=== PATIENT | male | born 1955 | race Two or more races ===

== ENCOUNTER 2020-11-28 22:38 | Inpatient (IN) | payer OTHER, MEDICARE ==
[~2020-11-28] VITALS: Ht 180.3 cm; Wt 94.1 kg
[2020-11-28] MEDS ORDERED: AMOXICILLIN/CLAV 875-125MG TABLET PO ONE (23:00)
[2020-11-28] MEDS ORDERED: ASPIRIN 325 MG TABLET ONE (23:19)
[2020-11-28 23:27] LABS: BASOPHILS % (AUTO) 0 % (0-1); EOSINOPHILS % (AUTO) 7 % (1-7); LYMPHOCYTES % (AUTO) 16 % (22-44); MEAN CORPUSCULAR HEMOGLOBIN 32.2 pg (27.5-34.5); MEAN CORPUSCULAR HGB CONC 33.3 g/dL (33.2-36.2); MEAN PLATELET VOLUME 8.6 fL (7.4-10.4); MONOCYTES % (AUTO) 13 % (2-9); NEUTROPHILS % (AUTO) 65 % (42-75); PLATELET COUNT 192 x10^3/uL (130-400); RED BLOOD COUNT 4.07 x10^6/uL (4.38-5.82); RED CELL DISTRIBUTION WIDTH 13.3 % (9.4-14.8)
[2020-11-28] MEDS ORDERED: ASPIRIN 325 MG TABLET PO ONE (23:30)
[2020-11-28 23:37] LABS: ALANINE AMINOTRANSFERASE 46 U/L (12-78); ALBUMIN 3.7 g/dL (3.4-5.0); CALCIUM 8.4 mg/dL (8.5-10.1); CHLORIDE 112 mmol/L (98-107); CREATININE 1.03 mg/dL (0.7-1.3)
[2020-11-28 23:41] LABS: ALKALINE PHOSPHATASE 78 U/L (45-117); BILIRUBIN,TOTAL 0.3 mg/dL (0.2-1.0); TOTAL PROTEIN 7.1 g/dL (6.4-8.2); TROPONIN I < 0.015 ng/mL (0.000-0.045)
[2020-11-28 23:47] LABS: ANION GAP 7 mmol/L (5-15)
--- NOTE | 2020-11-29 01:50 | NUR ---
RECEIVED REPORT FROM BIPIN ORTIZ. PT STATES, HE IS FEELING BETTER, PT TO CT SCAN VIA [facility]
[2020-11-29] MEDS ORDERED: OMNIPAQUE 350 MG/ML, 75ML BOTTLE ONE (02:06)
--- NOTE | 2020-11-29 03:13 | NUR ---
PT AGREED TO BE ADMITTED, SON WILL TAKE MOST BELONGINGS HOME. PT AND SON VERBALIZED UNDERSTANDING
[2020-11-29] MEDS ORDERED: LISI1TAB23 PO (03:16)
[2020-11-29] MEDS ORDERED: METF500T27 PO (03:17)
--- NOTE | 2020-11-29 03:59 | NUR ---
REPORT TO KAPIL VOSS, PLAN OF CARE DISCUSSED.
[2020-11-29] MEDS ORDERED: ONDANSETRON 2MG/ML, 2ML IVPush PRN (04:30)
[2020-11-29] MEDS ORDERED: ENALAPRILAT 1.25 MG/ML, 2ML IVPush PRN (04:30)
[2020-11-29] MEDS ORDERED: MAGNESIUM SULFATE PMX 2GM/50ML 50 ML IV ONE (04:30)
[2020-11-29] MEDS ORDERED: ACETAMINOPHEN 325 MG TABLET PO PRN (04:30)
[2020-11-29] MEDS ORDERED: ENALAPRILAT 1.25 MG/ML, 1ML ONE (04:37)
[2020-11-29] MEDS: methylPREDNISolone SOD SUCC 125 MG/2 ML IVPush SCH ×4 (04:46→22:37)
[2020-11-29] MEDS: ENOXAPARIN 40 MG/0.4 ML SQ SCH (04:46)
[2020-11-29 07:20] VITALS: BP 167/81
[2020-11-29] MEDS: LOSARTAN 50MG TABLET PO SCH (07:35)
[2020-11-29] MEDS: INSULIN LISPRO 100 UNITS/ML, PEN SQ-INSULIN SCH ×4 (07:52→20:28)
[2020-11-29 11:20] LABS: TROPONIN I < 0.015 ng/mL (0.000-0.045)
[2020-11-29 12:45] VITALS: BP 174/90
[2020-11-29 12:46] VITALS: BP 170/86
[2020-11-29 12:47] VITALS: BP 168/89
[2020-11-29 13:42] LABS: TROPONIN I < 0.015 ng/mL (0.000-0.045)
[2020-11-29] MEDS ORDERED: HYDROCHLOROTHIAZIDE 12.5 MG CAPSULE PO SCH (17:00)
[2020-11-29 18:34] VITALS: BP 151/83
[2020-11-30 00:41] VITALS: BP 151/72
[2020-11-30] MEDS: methylPREDNISolone SOD SUCC 125 MG/2 ML IVPush SCH (04:46)
[2020-11-30] MEDS: ENOXAPARIN 40 MG/0.4 ML SQ SCH (04:46)
[2020-11-30] MEDS: LOSARTAN 50MG TABLET PO SCH (07:49)
[2020-11-30 07:52] VITALS: BP 149/74
[2020-11-30] MEDS: INSULIN LISPRO 100 UNITS/ML, PEN SQ-INSULIN SCH ×2 (08:10→12:25)
[2020-11-30] MEDS ORDERED: ALBUTEROL SULFATE 2.5 MG/3 ML HHN PRN (08:30)
[2020-11-30] MEDS ORDERED: REGADENOSON 0.4 MG/5 ML SYRINGE ONE (09:23)
[2020-11-30] MEDS ORDERED: PHENOL THROAT SPRAY BOTTLE MM PRN (12:30)
[2020-11-30 13:33] VITALS: BP 149/69
[2020-11-30] MEDS ORDERED: LISI1TAB20 PO (14:09)
[2020-11-30] MEDS ORDERED: LEVA15HF5 INH (14:09)
== END 2020-11-30 15:50 | disposition home or self-care (01) | DRG 189 ==
LOC: ED 23:30 → EDIP 11-29 04:02 → 5SO 11-29 04:19
PROVIDERS: ADMIT Family Medicine; ATTEND Internal Medicine
DX: J96.01 Acute respiratory failure with hypoxia (principal); J98.11 Atelectasis; E11.9 Type 2 diabetes mellitus without complications; I10 Essential (primary) hypertension; J45.909 Unspecified asthma, uncomplicated
CPT/HCPCS: 36415; 71045; 71275; 78452; 80053; 82962; 83036; 83880; 84484; 85025; 85379; 93005; 93017; 93306; 96374; G0378; J1650; J2785; Q9967; A9502; C9898; J1815; J2930; J3475